=== PATIENT | female | born 1975 | race Hispanic/Latino ===

== ENCOUNTER 2016-09-05 20:51 | Emergency (ER) | payer BC ==
[2016-09-05 21:03] VITALS: BP 132/84; PULSE 86; RESP 18; TEMP 98.9; O2SAT 98
[2016-09-05] MEDS ORDERED: Albuterol-Ipratrop 3 mg / 0.5 (3 ml) UD IH STA (21:48)
--- NOTE | 2016-09-05 21:51 | ED PDOC ---
HPI: CCC, URI, Sore Throat Time Seen by Provider: 09/05/16 21:37 Chief Complaint (Nursing): Cough, Cold, Congestion Chief Complaint (Provider): cough History Per: Patient History/Exam Limitations: no limitations Onset/Duration Of Symptoms: Days (4) Current Symptoms Are (Timing): Still Present Associated Symptoms: Cough Additional History Per: Patient Additional Complaint(s): 40 y/o female presents with persistent cough x 4 days. Patient notes nasal congestion, fevers at onset; since resolved. Patient states cough persists despite cough suppressants. Patient notes coughing spell caused her to throw up phlegm which cleared her chest, now just dry cough. Denies fever, nasal congestion/discharge, chest pain, shortness of breath, palpitations, recent travel, sick contacts. Past Medical History Reviewed: Historical Data, Nursing Documentation, Vital Signs Vital Signs: Last Vital Signs Temp 98.9 F 09/05/16 20:54 Pulse 86 09/05/16 20:54 Resp 18 09/05/16 20:54 BP 132/84 09/05/16 20:54 Pulse Ox 98 09/05/16 21:51 - Medical History PMH: Asthma, Bronchitis - Family History Family History: States: Unknown Family Hx - Immunization History Hx Tetanus Toxoid Vaccination: No Hx Influenza Vaccination: No Hx Pneumococcal Vaccination: No - Home Medications Home Medications: Ambulatory Orders Medication Instructions Recorded Aspirin [Aspirin Chewable] 81 mg PO DAILY 11/15/14 Multivitamin and Minerals 1 tab PO DAILY 11/15/14 [Therapeutic Multivitamin W/Minerals] Albuterol Sulfate [Ventolin Hfa] 1 puff IH Q6 #1 inh 03/07/15 Azithromycin [Zithromax] 6 ml PO DAILY #24 ml 03/07/15 Brompheniramine/Pseudoephed/Dm 10 ml PO Q4 #300 syr 03/07/15 [Bromfed Dm Cough 118 ml] Ondansetron ODT [Zofran ODT] 4 mg PO TID #21 odt 11/19/15 Azithromycin 500 mg PO ONCE #37.5 ml 09/05/16 - Allergies Allergies/Adverse Reactions: Allergies Allergy/AdvReac Type Severity Reaction Status Date / Time acetaminophen [From Percocet] Allergy ITCHING Verified 11/19/15 20:38 iron Allergy ITCHING Verified 11/19/15 20:38 oxycodone HCl [From Percocet] Allergy ITCHING Verified 11/19/15 20:38 iron Allergy RASH Uncoded 03/07/15 21:32 Review of Systems ROS Statement: Except As Marked, All Systems Reviewed And Found Negative Respiratory: Positive for: Cough Physical Exam - Reviewed Nursing Documentation Reviewed: Yes Vital Signs Reviewed: Yes - Physical Exam Appears: Positive for: Well, Non-toxic, Uncomfortable (actively coughing) Skin: Positive for: Normal Color Eye Exam: Positive for: Normal appearance ENT: Positive for: Normal ENT Inspection Cardiovascular/Chest: Positive for: Regular Rate, Rhythm Respiratory: Positive for: Normal Breath Sounds Gastrointestinal/Abdominal: Positive for: Normal Exam Back: Positive for: Normal Inspection Extremity: Positive for: Normal ROM Neurologic/Psych: Positive for: Alert, Oriented - ECG O2 Sat by Pulse Oximetry: 98 - Radiology X-Ray: Viewed By Md X-Ray Interpretation: No Acute Disease - Progress ED Course And Treament: chest xray, duonebs Patient educated on findings, discharged with rx Zpak. Patient states she does not wish to take steroids, and does not think she can tolerate codeine due to her percocet allergy. Advised to use Albuterol HFA. Follow up PMD 2-3 days. Return to ED for worsening/concerning symptoms. Disposition - Clinical Impression Clinical Impression: Bronchitis - Patient ED Disposition Is Patient to be Admitted: No Counseled Patient/Family Regarding: Studies Performed, Diagnosis, Need For Followup, Rx Given - Disposition Disposition: Routine/Home Disposition Time: 23:44 Condition: STABLE Additional Instructions: Follow up with primary doctor in 2-3 days. Take medication as directed. Use inhaler as instructed. Continue cough medication as directed. Return to ED for worsening/concerning symptoms. Prescriptions: Azithromycin 500 mg PO ONCE #37.5 ml Instructions: Acute Bronchitis (ED)
[2016-09-05] MEDS ORDERED: Albuterol-Ipratrop 3 mg / 0.5 (3 ml) UD ONE (21:56)
[2016-09-05] MEDS: Albuterol-Ipratrop 3 mg / 0.5 (3 ml) UD IH STA ×3 (22:05→22:11)
[2016-09-05] MEDS ORDERED: Promethazine 6.25 MG/5 ML CUP ONE (23:46)
[2016-09-05] MEDS ORDERED: Promethazine 6.25 MG/5 ML CUP PO STA (23:56)
--- NOTE | 2016-09-06 13:01 | RAD ---
HISTORY: cough COMPARISON: 11/15/2014 FINDINGS: LUNGS: The lungs are well inflated and clear. PLEURA: No significant pleural effusion identified, no pneumothorax apparent. CARDIOVASCULAR: Normal. OSSEOUS STRUCTURES: No significant abnormalities. VISUALIZED UPPER ABDOMEN: Normal. OTHER FINDINGS: None. IMPRESSION: No active pulmonary disease.
== END 2016-09-06 00:05 | disposition home or self-care (01) ==
LOC: H.ER 20:51
DX: J20.9 Acute bronchitis, unspecified (principal); J45.909 Unspecified asthma, uncomplicated

== ENCOUNTER 2016-09-06 18:22 | Emergency (ER) | payer BC ==
[2016-09-06 18:49] VITALS: BP 141/78; PULSE 78; RESP 22; TEMP 98.4; O2SAT 100
[2016-09-06] MEDS ORDERED: Albuterol-Ipratrop 3 mg / 0.5 (3 ml) UD IH STA (20:27)
--- NOTE | 2016-09-06 20:34 | ED PDOC ---
HPI: CCC, URI, Sore Throat Time Seen by Provider: 09/06/16 20:26 Chief Complaint (Nursing): Cough, Cold, Congestion Chief Complaint (Provider): cough History Per: Patient History/Exam Limitations: no limitations Onset/Duration Of Symptoms: Days Current Symptoms Are (Timing): Still Present Additional History Per: Patient Additional Complaint(s): 40 y/o female here for eval of persistent dry cough. Patient seen yesterday for same, diagnosed with Bronchitis and prescribed zithromax. PAtient declined steroids, promethazine with codeine at that time; but notes little improvement of cough with inhaler and antibiotics and OTC cough medicine. Denies fever, nasal congestion/discharge, chest pain, shortness of breath, palpitations, recent travel, sick contacts. Past Medical History Reviewed: Historical Data, Nursing Documentation, Vital Signs Vital Signs: Last Vital Signs Temp 98.4 F 09/06/16 18:49 Pulse 78 09/06/16 18:49 Resp 22 09/06/16 18:49 BP 141/78 09/06/16 18:49 Pulse Ox 100 09/06/16 20:34 - Medical History PMH: Asthma, Bronchitis Other PMH: myeloma - Surgical History Surgical History: No Surg Hx - Family History Family History: States: Unknown Family Hx - Immunization History Hx Tetanus Toxoid Vaccination: No Hx Influenza Vaccination: No Hx Pneumococcal Vaccination: No - Home Medications Home Medications: Ambulatory Orders Medication Instructions Recorded Aspirin [Aspirin Chewable] 81 mg PO DAILY 11/15/14 Multivitamin and Minerals 1 tab PO DAILY 11/15/14 [Therapeutic Multivitamin W/Minerals] Albuterol Sulfate [Ventolin Hfa] 1 puff IH Q6 #1 inh 03/07/15 Azithromycin [Zithromax] 6 ml PO DAILY #24 ml 03/07/15 Brompheniramine/Pseudoephed/Dm 10 ml PO Q4 #300 syr 03/07/15 [Bromfed Dm Cough 118 ml] Ondansetron ODT [Zofran ODT] 4 mg PO TID #21 odt 11/19/15 Azithromycin 500 mg PO ONCE #37.5 ml 09/05/16 Fluticasone Propionate [Flovent 110 mcg IH BID #1 inhaler 09/06/16 Hfa] - Allergies Allergies/Adverse Reactions: Allergies Allergy/AdvReac Type Severity Reaction Status Date / Time acetaminophen [From Percocet] Allergy ITCHING Verified 09/06/16 18:48 iron Allergy ITCHING Verified 09/06/16 18:48 oxycodone HCl [From Percocet] Allergy ITCHING Verified 09/06/16 18:48 iron Allergy RASH Uncoded 03/07/15 21:32 Review of Systems ROS Statement: Except As Marked, All Systems Reviewed And Found Negative Respiratory: Positive for: Cough Physical Exam - Reviewed Nursing Documentation Reviewed: Yes Vital Signs Reviewed: Yes - Physical Exam Appears: Positive for: Well, Non-toxic, No Acute Distress Head Exam: Positive for: ATRAUMATIC, NORMAL INSPECTION, NORMOCEPHALIC Skin: Positive for: Normal Color Eye Exam: Positive for: Normal appearance ENT: Positive for: Normal ENT Inspection Cardiovascular/Chest: Positive for: Regular Rate, Rhythm Respiratory: Positive for: Normal Breath Sounds Gastrointestinal/Abdominal: Positive for: Normal Exam Back: Positive for: Normal Inspection Extremity: Positive for: Normal ROM Neurologic/Psych: Positive for: Alert, Oriented - Laboratory Results Result Diagrams: 09/06/16 20:59 09/06/16 20:59 - ECG O2 Sat by Pulse Oximetry: 100 - Progress ED Course And Treament: labs, IV solumedrol dose, duoneb On re-eval, cough improved. Patient discharged with rx Flovent. Advised follow up PMD 1-2 days. Continue current medications. Return to ED for worsening/concerning symptoms. Disposition - Clinical Impression Clinical Impression: Bronchitis - Patient ED Disposition Is Patient to be Admitted: No Counseled Patient/Family Regarding: Studies Performed, Diagnosis, Need For Followup, Rx Given - Disposition Disposition: Routine/Home Disposition Time: 23:33 Condition: IMPROVED Additional Instructions: Follow up with primary doctor in 1-2 days. Use medications as instructed. Return to ED for worsening/concerning symptoms. Prescriptions: Fluticasone Propionate [Flovent Hfa] 110 mcg IH BID #1 inhaler
[2016-09-06] MEDS ORDERED: Sodium Chloride 0.9% 1,000 ML IV STA (20:40)
[2016-09-06 21:31] LABS: BASO % 0.2 % (0.0-2.0); EOS # 0.1 K/uL (0.0-0.7); EOS % 1.1 % (0.0-4.0); HEMATOCRIT 33.5 % (34.0-47.0); LYMPH # 1.4 K/uL (1.0-4.3); LYMPH % 19.9 % (20.0-40.0); MEAN CELL VOLUME 80.4 fl (81.0-99.0); MEAN CORPUSCULAR HEMOGLOBIN 27.1 pg (27.0-31.0); MEAN CORPUSCULAR HGB CONC 33.7 g/dL (33.0-37.0); MEAN PLATELET VOLUME 7.3 fl (7.2-11.7); MONO # 0.5 K/uL (0.0-0.8); MONO % 7.2 % (0.0-10.0); NEUT # 4.9 K/uL (1.8-7.0); NEUT % 71.6 % (50.0-75.0); NRBC % 0.3 % (0.0-0.0); RED CELL DISTRIBUTION WIDTH 18.7 % (11.5-14.5); WHITE BLOOD COUNT 6.9 K/uL (4.8-10.8)
[2016-09-06 21:44] LABS: ALB/GLOB RATIO 1.2 (1.0-2.1); ALKALINE PHOSPHATASE 83 U/L (38-126); ALT/SGPT 53 U/L (9-52); AST/SGOT 49 U/L (14-36); BILIRUBIN,TOTAL 0.6 mg/dl (0.2-1.3); BLOOD UREA NITROGEN 17 mg/dl (7-17); CALCIUM 9.3 mg/dL (8.4-10.2); CARBON DIOXIDE 21 mmol/L (22-30); CHLORIDE 106 mmol/L (98-107); GFR AFRICAN-AMERICAN > 60; GLUCOSE,RANDOM 103 mg/dL (65-105); SODIUM 143 mmol/l (132-148); TOTAL PROTEIN 7.9 G/DL (6.3-8.2)
== END 2016-09-06 23:48 | disposition home or self-care (01) ==
LOC: H.ER 18:22
DX: J40 Bronchitis, not specified as acute or chronic (principal)
CPT/HCPCS: 80053; 81025; 85025; 87804; 94640; 96374; 99282; J2930; J7040

== ENCOUNTER 2017-06-20 13:17 | Observation (INO) | payer BC ==
[2017-06-20 14:11] LABS: BASO # 0.1 K/uL (0.0-0.2); EOS # 0.1 K/uL (0.0-0.7); EOS % 0.7 % (0.0-4.0); HEMOGLOBIN 13.2 g/dL (12.0-16.0); LYMPH # 1.5 K/uL (1.0-4.3); LYMPH % 19.2 % (20.0-40.0); MEAN CELL VOLUME 79.3 fl (81.0-99.0); MEAN CORPUSCULAR HEMOGLOBIN 26.9 pg (27.0-31.0); MEAN CORPUSCULAR HGB CONC 33.9 g/dL (33.0-37.0); MEAN PLATELET VOLUME 7.3 fl (7.2-11.7); MONO # 0.6 K/uL (0.0-0.8); MONO % 7.4 % (0.0-10.0); NEUT # 5.5 K/uL (1.8-7.0); NEUT % 71.7 % (50.0-75.0); NRBC % 0.2 % (0.0-0.0); RBC 4.9 Mil/uL (3.80-5.20); RED CELL DISTRIBUTION WIDTH 19.3 % (11.5-14.5); WHITE BLOOD COUNT 7.7 K/uL (4.8-10.8)
[2017-06-20 14:31] LABS: ALB/GLOB RATIO 1.4 (1.0-2.1); ALBUMIN 4.8 g/dL (3.5-5.0); ALT/SGPT 49 U/L (9-52); AST/SGOT 39 U/L (14-36); BLOOD UREA NITROGEN 20 mg/dl (7-17); GFR AFRICAN-AMERICAN > 60; GFR NON-AFRICAN AMERICAN > 60
[2017-06-20 14:42] LABS: B-TYPE NATRIURETIC PEPTIDE 42.1 pg/ml (0-450)
[2017-06-20 15:16] LABS: BARBITURATES, UR NEGATIVE (NEGATIVE); BENZODIAZEPINES, UR NEGATIVE (NEGATIVE); OPIATES, UR NEGATIVE (NEGATIVE); PHENCYCLIDINE, UR NEGATIVE (NEGATIVE)
[2017-06-20 15:30] LABS: PROTHROMBIN TIME 10.5 Seconds (9.8-13.1)
[2017-06-20 15:31] LABS: PARTIAL THROMBOPLASTIN TIME 29.8 Seconds (25.6-37.1)
--- NOTE | 2017-06-20 15:31 | ED PDOC ---
HPI: SOB/CHF/COPD Time Seen by Provider: 06/20/17 13:30 Chief Complaint (Nursing): Shortness Of Breath Chief Complaint (Provider): Shortness Of breath and chest pain History Per: Patient History/Exam Limitations: no limitations Onset/Duration Of Symptoms: Days (x3) Current Symptoms Are (Timing): Still Present Additional Complaint(s): 41 year old female with a past medical history of myelofibrosis, splenomegaly, back pain, and asthma, who presents to the ED complaining of shortness of breath and mild chest pain x3 days. States she was seen yesterday at [facility] and left AMA due to anxiety. Patient was scheduled for CT Angio of the chest to rule out a pulmonary embolism. Patient did not complete treatment. Patient was also under workup for pre-op evaluation for lumbar fusion scheduled in several weeks. Denies fever, cough, hemoptysis, and lower extremity edema or pain. PMD: Dr. Babcock [phone] Past Medical History Reviewed: Historical Data, Nursing Documentation, Vital Signs Vital Signs: Last Vital Signs Temp 99.9 F H 06/20/17 15:45 Pulse 78 06/20/17 18:00 Resp 14 06/20/17 18:00 BP 132/75 06/20/17 18:00 Pulse Ox 100 06/20/17 18:00 - Medical History PMH: Asthma, Back Problems, Bronchitis Other PMH: Splenomegaly, Myelofibrosis - Surgical History Surgical History: No Surg Hx - Family History Family History: States: Unknown Family Hx - Social History Current smoker - smoking cessation education provided: No Alcohol: None - Immunization History Hx Tetanus Toxoid Vaccination: No Hx Influenza Vaccination: No Hx Pneumococcal Vaccination: No - Home Medications Home Medications: Ambulatory Orders Medication Instructions Recorded Folic Acid/Multivit-Min/Lutein 1 tab PO DAILY 06/20/17 [Multi-Vitamin Gummies] - Allergies Allergies/Adverse Reactions: Allergies Allergy/AdvReac Type Severity Reaction Status Date / Time acetaminophen [From Percocet] Allergy ITCHING Verified 06/20/17 13:21 iron Allergy ITCHING Verified 06/20/17 13:21 oxycodone HCl [From Percocet] Allergy ITCHING Verified 06/20/17 13:21 iron Allergy RASH Uncoded 06/20/17 13:21 Review of Systems ROS Statement: Except As Marked, All Systems Reviewed And Found Negative Constitutional: Negative for: Fever Cardiovascular: Positive for: Chest Pain (mild) Respiratory: Positive for: Shortness of Breath. Negative for: Cough, Hemoptysis Musculoskeletal: Negative for: Leg Pain (and edema) Physical Exam - Reviewed Nursing Documentation Reviewed: Yes Vital Signs Reviewed: Yes - Physical Exam Appears: Positive for: Non-toxic, No Acute Distress (mildly anxious) Head Exam: Positive for: ATRAUMATIC, NORMAL INSPECTION, NORMOCEPHALIC Skin: Positive for: Normal Color, Warm, Dry. Negative for: Rash Eye Exam: Positive for: Normal appearance, EOMI, PERRL, Other ([place] conjuctiva) ENT: Positive for: Normal ENT Inspection Neck: Positive for: Normal, Painless ROM, Supple Cardiovascular/Chest: Positive for: Tachycardia (resting). Negative for: Murmur Respiratory: Positive for: Normal Breath Sounds. Negative for: Respiratory Distress Gastrointestinal/Abdominal: Positive for: Normal Exam, Bowel Sounds, Soft. Negative for: Tenderness Back: Positive for: Normal Inspection. Negative for: L CVA Tenderness, R CVA Tenderness, Vertebral Tenderness Extremity: Positive for: Normal ROM. Negative for: Pedal Edema, Deformity, Swelling Neurologic/Psych: Positive for: Alert, Oriented (x3). Negative for: Motor/ Sensory Deficits - Laboratory Results Result Diagrams: 06/20/17 14:00 06/20/17 14:00 - ECG O2 Sat by Pulse Oximetry: 100 (RA) Pulse Ox Interpretation: Normal Medical Decision Making Medical Decision Making: Time: 13:31 Plan: --Results from [facility] yesterday including blood work, EKG and x-ray were copied and scanned into chart. --CT Angio Chest PE Protocol --EKG --BNP --CMP --Urine drug screen --ED urine --ED urine dipstick --CBC w/ differential --PTT --PT --PICC --Ativan 1 mg IVP for anxiolysis --Influenza A B --Reevaluation --EKG shows sinus at 86, nonspecific changes and normal axis --Unable to obtain peripheral IV access despite multiple sticks. Therefore will obtain PICC line for CT chest with contrast -- lungs are clear, she states this dyspnea is different than her prior asthma which has been well controlled CTA: Accession No. : [id number] Patient Name / ID : GERARD [id number] / [id number] Exam Date : 06/20/2017 16:10:11 ( Approved ) Study Comment : Sex / Age : F / 41Y Creator : Benny Houston MD Dictator : Benny Houston MD Plumber Cub : [employer] T[employer] : Benny Houston MD Approver2 : Report Date : 06/20/2017 17:55:32 My Comment : PROCEDURE: CT Chest with contrast (Pulmonary Angiogram) HISTORY: SOB COMPARISON: None available. TECHNIQUE: Axial computed tomography images were obtained of the chest in the pulmonary arterial phase of enhancement. Coronal and sagittal reformatted images were created and reviewed. Intravenous contrast dose: 90 mL Visipaque 320 Radiation dose: Total exam DLP = 406.16 mGy-cm. This CT exam was performed using one or more of the following dose reduction techniques: Automated exposure control, adjustment of the mA and/or kV according to patient size, and/or use of iterative reconstruction technique. FINDINGS: PULMONARY ARTERIES: Examination limited due to timing of examination relative to contrast bolus and due to body habitus. No large central filling defect identified. However, evaluation of segmental and subsegmental vessels is considered limited on the basis of this examination. AORTA: No acute findings. No thoracic aortic aneurysm. LUNGS: Unremarkable. No nodule, mass or pulmonary consolidation. PLEURAL SPACES: Unremarkable. No effusion or pneuomothorax. HEART: Unremarkable. No cardiomegaly. No significant pericardial effusion. LYMPH NODES: No lymphadenopathy. BONES, CHEST WALL: Unremarkable. No fracture or destructive lesion OTHER FINDINGS: Splenomegaly IMPRESSION: Limited examination for evaluation of pulmonary embolism. No evidence of large central pulmonary embolism. No infiltrate/ effusion. Splenomegaly noted. Pt remains dyspneic, HR mildly improved but when ambulates states feels weak/ presyncopal. BP stable. States does not feel anxious, ativan now 4+ hours ago. Place Obs to Dr Vicente, will obtain echo in am and pulm eval. Scribe Attestation: Documented by Scott Brown acting as a scribe for Gorge Hurley III, DO. Scribe Attestation: All medical record entries made by the Scribe were at my direction and personally dictated by me. I have reviewed the chart and agree that the record accurately reflects my personal performance of the history, physical exam, medical decision making, and the department course for this patient. I have also personally directed, reviewed, and agree with the discharge instructions and disposition. Disposition - Clinical Impression Clinical Impression: Dyspnea - Patient ED Disposition Is Patient to be Admitted: Yes Counseled Patient/Family Regarding: Studies Performed, Diagnosis, Need For Followup - Disposition Disposition Time: 17:01 Condition: FAIR Forms: [employer] (Maltese) - Pt Status Changed To: Hospital Disposition Of: Observation - POA Present On Arrival: None
[2017-06-20] MEDS ORDERED: Lidocaine 1% Inj (20ml) ONE (15:48)
--- NOTE | 2017-06-20 16:05 | CARD ---
APPROVED REPORT EKG Measurement Heart [id number] <Conclusion> Normal sinus rhythm Low voltage QRS Borderline ECG
[2017-06-20] MEDS ORDERED: Absorbable Gelatin Sponge Size 12-7 ONE (16:08)
[2017-06-20] MEDS ORDERED: Sodium Chloride 0.9% 50 ML IV ONE (16:11)
[2017-06-20] MEDS ORDERED: Iodixanol 320 MG/ML 100 ML BOTTLE IV ONE (16:11)
--- NOTE | 2017-06-20 16:16 | PCM.SURG1 ---
Surgeon's Initial Post Op Note - Surgeon's Notes Surgeon: Austin Bhakta MD Pesticide Applicator: None Type of Anesthesia: Local Pre-Operative Diagnosis: poor IV access Operative Findings: patent right basilic vein. catheter length: 38 cm. catheter tip: cavoatrial junction Post-Operative Diagnosis: same Operation Performed: RUE PICC insertion Specimen/Specimens Removed: n/a Estimated Blood Loss: EBL {In ML}: 5 Date of Surgery/Procedure: 06/20/17 Time of Surgery/Procedure: 16:16
--- NOTE | 2017-06-20 16:23 | VASCULAR ---
PROCEDURE: PERIPHERALLY INSERTED CENTRAL VENOUS CATHETER INSERTION CLINICAL HISTORY: 41-year-old female with poor intravenous access is referred to Interventional Radiology for PICC insertion. COMPARISON: None. PROCEDURE: 1. Focused ultrasound of the right upper extremity vasculature. 2. Ultrasound-guided access. 3. Insertion of peripherally inserted central venous catheter. 4. Fluoroscopic localization of catheter tip. PRE-PROCEDURE FINDINGS: 1. Patent right basilic vein. POST-PROCEDURE FINDINGS: 1. Placement of 4 Jamaican single-lumen PICC. 2. Catheter length: 38 cm. 3. Catheter tip at cavoatrial junction. INTERVENTIONAL RADIOLOGIST: Austin Bhakta M.D. (the attending was present for the entire procedure) ANESTHESIA: None. MEDICATION: Lidocaine 1% for local subcutaneous analgesia. COMPLICATIONS: None. RADIATION DOSE: Fluoroscopy Time: 34.7 seconds Cumulative Dose: 3.94 mGy PROCEDURE DESCRIPTION AND FINDINGS: The risks, benefits, alternatives and possible complications of the procedure were fully discussed; all questions were answered and informed consent was obtained. The patient was brought into the interventional suite and a pre-procedure 'time-out' was performed. The patient was placed on the fluoroscopy table in the supine position. The right upper extremity was prepped and draped in the usual sterile fashion. Maximum sterile barrier precautions were maintained throughout the entire procedure. Preliminary ultrasound images of the right upper extremity vasculature demonstrate patency of the right basilic vein. Following subcutaneous infiltration of 1% lidocaine for local analgesia, under ultrasound guidance, a 21-gauge needle was advanced into the right basilic vein with real-time visualization of needle entry. The ultrasound images were permanently recorded and submitted to the PACS. A 0.018 guidewire was advanced centrally to the cavoatrial junction. A 4.5 Jamaican peel-away sheath was advanced over the guidewire. After obtaining length measurement, a 4 Jamaican single-lumen PICC was placed with the tip of the catheter at the cavoatrial junction. The total length of the catheter is 38 cm. The hub of the PICC was secured to the skin using a sterile adhesive bandage. The patient tolerated the procedure well without immediate post-procedure complications and was transferred back to the emergency department in stable condition. IMPRESSION: SUCCESSFUL INSERTION OF RIGHT UPPER EXTREMITY PICC. PICC OK TO USE.
--- NOTE | 2017-06-20 17:57 | CT ---
PROCEDURE: CT Chest with contrast (Pulmonary Angiogram) HISTORY: SOB COMPARISON: None available. TECHNIQUE: Axial computed tomography images were obtained of the chest in the pulmonary arterial phase of enhancement. Coronal and sagittal reformatted images were created and reviewed. Intravenous contrast dose: 90 mL Visipaque 320 Radiation dose: Total exam DLP = 406.16 mGy-cm. This CT exam was performed using one or more of the following dose reduction techniques: Automated exposure control, adjustment of the mA and/or kV according to patient size, and/or use of iterative reconstruction technique. FINDINGS: PULMONARY ARTERIES: Examination limited due to timing of examination relative to contrast bolus and due to body habitus. No large central filling defect identified. However, evaluation of segmental and subsegmental vessels is considered limited on the basis of this examination. AORTA: No acute findings. No thoracic aortic aneurysm. LUNGS: Unremarkable. No nodule, mass or pulmonary consolidation. PLEURAL SPACES: Unremarkable. No effusion or pneuomothorax. HEART: Unremarkable. No cardiomegaly. No significant pericardial effusion. LYMPH NODES: No lymphadenopathy. BONES, CHEST WALL: Unremarkable. No fracture or destructive lesion OTHER FINDINGS: Splenomegaly IMPRESSION: Limited examination for evaluation of pulmonary embolism. No evidence of large central pulmonary embolism. No infiltrate/ effusion. Splenomegaly noted.
[2017-06-21] MEDS ORDERED: Acetaminophen 650mg/20.3ml solution UD PO PRN (06:35)
[2017-06-21] MEDS: Pantoprazole 40 mg Susp UD PO SCH ×2 (08:28→08:30)
--- NOTE | 2017-06-21 13:53 | CP.PCM.HP ---
History of Present Illness - History of Present Illness History of Present Illness: 41 yo female presented to ED with complaint of SOB and chest pain x 3 days. Patient reports she was at [facility] yesterday and left against medical advice due to anxiety. PMH includes obesity, asthma, chronic lumbar pain due to herniated discs, myelofibrosis, and splenomegaly. Patient reports she has had similar episodes of this chest pain in the past which have resolved on their own. Patients denies palpitations, syncope, fever, cough, lower extremity pain or swelling. 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 (patient has no other primary) PMHx: obesity, asthma, chronic lumbar pain due to herniated discs, myelofibrosis , and splenomegaly SurHx: schwannoma removed from mediastinum in 2003, herniated disc procedure in 2007 FMHx: unknown family history, patient is adopted SocHx: denies smoking, alcohol, and drugs Medications: see medication reconciliation Allergies: percocet (tylenol/oxycodone), iron infusion Present on Admission - Present on Admission Any Indicators Present on Admission: No History of DVT/PE: No History of Uncontrolled Diabetes: No Urinary Catheter: No Decubitus Ulcer Present: No History Surgical Site Infection Following: None Review of Systems - Review of Systems All systems: reviewed and no additional remarkable complaints except (for what is mentioned in the HPI) - Constitutional Constitutional: absent: Headache, Weight Loss - EENT Eyes: absent: Change in Vision Ears: absent: Ear Pain Nose/Mouth/Throat: absent: Nasal Congestion - Cardiovascular Cardiovascular: Chest Pain, Dyspnea. absent: Leg Edema, Palpitations - Respiratory Respiratory: absent: Cough, Hemoptysis - Gastrointestinal Gastrointestinal: absent: Abdominal Pain, Heartburn, Nausea, Vomiting - Genitourinary Genitourinary: absent: Difficulty Urinating, Dysuria - Musculoskeletal Musculoskeletal: Back Pain (chronic lumbar pain due to history of herniated discs) - Neurological Neurological: absent: Confusion, Weakness - Psychiatric Psychiatric: absent: Homicidal Ideation, Suicidal Ideation - Hematologic/Lymphatic Hematologic: absent: Easy Bleeding, Easy Bruising Past Patient History - Infectious Disease Hx of Infectious Diseases: None - Past Medical History & Family History Past Medical History?: Yes - Past Social History Smoking Status: Never Smoked - CARDIAC Hx Cardiac Disorders: No - PULMONARY Hx Respiratory Disorders: Yes Hx Asthma: Yes Hx Bronchitis: Yes - NEUROLOGICAL Hx Neurological Disorder: No - HEENT Hx HEENT Problems: No - RENAL Hx Chronic Kidney Disease: No - ENDOCRINE/METABOLIC Hx Endocrine Disorders: Yes Other/Comment: Enlarged spleen - HEMATOLOGICAL/ONCOLOGICAL Hx Blood Disorders: Yes Hx Anemia: Yes Other/Comment: Myelofibrosis - INTEGUMENTARY Hx Dermatological Problems: No - MUSCULOSKELETAL/RHEUMATOLOGICAL Hx Musculoskeletal Disorders: Yes Hx Back Pain: Yes Hx Falls: No Hx Herniated Disk: Yes - GASTROINTESTINAL Hx Gastrointestinal Disorders: Yes Hx Fatty Liver Disease: Yes Other/Comment: Enlarged liver & spleen, endoscopy x2,colonoscopy x1. Hernia - GENITOURINARY/GYNECOLOGICAL Hx Genitourinary Disorders: No - PSYCHIATRIC Hx Psychophysiologic Disorder: Yes Hx Anxiety: Yes Hx Substance Use: No - SURGICAL HISTORY Hx Surgeries: Yes Other/Comment: herniated disc surgery-2007, Removal of tumor from mediastinum- 2003 - ANESTHESIA Hx Anesthesia: Yes Hx Anesthesia Reactions: No Hx Malignant Hyperthermia: No Meds Allergies/Adverse Reactions: Allergies Allergy/AdvReac Type Severity Reaction Status Date / Time acetaminophen [From Percocet] Allergy ITCHING Verified 06/20/17 13:21 iron Allergy ITCHING Verified 06/20/17 13:21 oxycodone HCl [From Percocet] Allergy ITCHING Verified 06/20/17 13:21 iron Allergy RASH Uncoded 06/20/17 13:21 Physical Exam - Constitutional Appears: No Acute Distress Additional comments: obese - Head Exam Head Exam: ATRAUMATIC, NORMOCEPHALIC - Eye Exam Eye Exam: EOMI - ENT Exam ENT Exam: Mucous Membranes Moist - Neck Exam Neck exam: Positive for: Full Rom - Respiratory Exam Respiratory Exam: NORMAL BREATHING PATTERN - Cardiovascular Exam Cardiovascular Exam: REGULAR RHYTHM, +S1, +S2 - GI/Abdominal Exam GI & Abdominal Exam: Normal Bowel Sounds, Soft (obese). absent: Tenderness - Extremities Exam Extremities exam: Positive for: full ROM. Negative for: calf tenderness, pedal edema - Neurological Exam Neurological exam: Alert, CN II-XII Intact, Oriented x3 - Psychiatric Exam Psychiatric exam: Normal Affect, Normal Mood - Skin Skin Exam: Dry, Warm Results - Vital Signs Recent Vital Signs: Last Vital Signs Temp 98.1 F 06/21/17 12:00 Pulse 84 06/21/17 12:00 Resp 18 06/21/17 12:00 BP 123/83 06/21/17 12:00 Pulse Ox 100 06/21/17 12:00 - Labs Result Diagrams: 06/20/17 14:00 06/20/17 14:00 Labs: Laboratory Results - last 24 hr 06/20/17 06/20/17 06/20/17 14:00 14:00 14:50 WBC 7.7 RBC 4.90 Hgb 13.2 Hct 38.8 MCV 79.3 L MCH 26.9 L MCHC 33.9 RDW 19.3 H Plt Count 517 H D MPV 7.3 Neut % (Auto) 71.7 Lymph % (Auto) 19.2 L Hooker % (Auto) 7.4 Eos % (Auto) 0.7 Baso % (Auto) 1.0 Neut # 5.5 Lymph # 1.5 Hooker # 0.6 Eos # 0.1 Baso # 0.1 PT INR APTT Sodium 145 Potassium 3.7 Chloride 106 Carbon Dioxide 22 Anion Gap 21 H BUN 20 H Creatinine 0.7 Est GFR ( Amer) > 60 Est GFR (Non-Af Amer) > 60 Random Glucose 122 H Calcium 10.0 Total Bilirubin 0.5 AST 39 H ALT 49 Alkaline Phosphatase 80 Troponin I < 0.0120 NT-Pro-B Natriuret Pep 42.1 Total Protein 8.2 Albumin 4.8 Globulin 3.4 Albumin/Globulin Ratio 1.4 Urine Opiates Screen Negative Urine Methadone Screen Negative Ur Barbiturates Screen Negative Ur Phencyclidine Scrn Negative Ur Amphetamines Screen Negative U Benzodiazepines Scrn Negative U Oth Cocaine Metabols Negative U Cannabinoids Screen Negative 06/20/17 15:14 WBC RBC Hgb Hct MCV MCH MCHC RDW Plt Count MPV Neut % (Auto) Lymph % (Auto) Hooker % (Auto) Eos % (Auto) Baso % (Auto) Neut # Lymph # Hooker # Eos # Baso # PT 10.5 INR 1.0 APTT 29.8 Sodium Potassium Chloride Carbon Dioxide Anion Gap BUN Creatinine Est GFR ( Amer) Est GFR (Non-Af Amer) Random Glucose Calcium Total Bilirubin AST ALT Alkaline Phosphatase Troponin I NT-Pro-B Natriuret Pep Total Protein Albumin Globulin Albumin/Globulin Ratio Urine Opiates Screen Urine Methadone Screen Ur Barbiturates Screen Ur Phencyclidine Scrn Ur Amphetamines Screen U Benzodiazepines Scrn U Oth Cocaine Metabols U Cannabinoids Screen Assessment & Plan - Assessment and Plan (Free Text) Assessment: 41 yo female admitted for SOB. -admit to telemetry -f/u serial troponins, echocardiogram -regular diet -PPI - Date & Time Date: 06/21/17 Time: 10:40
--- NOTE | 2017-06-21 14:07 | CARD ---
APPROVED REPORT EXAM: Two-dimensional and M-mode echocardiogram with Doppler and color Doppler. INDICATION Dyspnea 2D DIMENSIONS IVSd1.27 (0.7-1.1cm)LVDd4.28 (3.9-5.9cm) PWd1.49 (0.7-1.1cm)IVSs1.53 (0.8-1.2cm) LVDs2.84 (2.5-4.0cm)FS (%) 33.5 % PWs1.90 (0.8-1.2cm)LVEF (%)55.0 (>50%) M-Mode DIMENSIONS Left Atrium (MM)3.63 (2.5-4.0cm)IVSd1.28 (0.7-1.1cm) Aortic Root3.13 (2.2-3.7cm)LVDd5.16 (4.0-5.6cm) Aortic Cusp Exc.1.96 (1.5-2.0cm)PWd1.10 (0.7-1.1cm) IVSs1.74 cmFS (%) 38 % LVDs3.20 (2.0-3.8cm)PWs2.06 cm Mitral Valve MV E Hldscltf49.1cm/sMV DECEL [id number] A Asjiyjyr31.2cm/s MV [id number]/A ratio1.4MVA (PHT)4.52cm2 TDI E/Lateral E'0.0E/Medial E'0.0 Tricuspid Valve TR Peak [id number]/sTR Peak Gr.23mmHg LEFT VENTRICLE The left ventricle is normal size. There is borderline concentric left ventricular hypertrophy. The left ventricular function is normal. The left ventricular ejection fraction is within the normal range. There is normal LV segmental wall motion. The left ventricular diastolic function is normal. RIGHT VENTRICLE The right ventricle is normal size. There is normal right ventricular wall thickness. The right ventricular systolic function is normal. ATRIA The left atrium size is normal. The right atrium size is normal. AORTIC VALVE The aortic valve is normal in structure. No aortic regurgitation is present. There is no aortic valvular stenosis. MITRAL VALVE The mitral valve is mildly thickened. There is no mitral valve stenosis. Mitral regurgitation is trace. TRICUSPID VALVE The tricuspid valve is normal in structure. There is no tricuspid valve regurgitation noted. PULMONIC VALVE The pulmonary valve is normal in structure. There is no pulmonic valvular regurgitation. GREAT VESSELS The aortic root is normal in size. The IVC was not visualized. PERICARDIAL EFFUSION There is a trace circumferential pericardial effusion. <Conclusion> The left ventricle is normal size. There is borderline concentric left ventricular hypertrophy. The left ventricular function is normal. The left ventricular ejection fraction is within the normal range. There is normal LV segmental wall motion. The left ventricular diastolic function is normal.
[2017-06-21 16:04] VITALS: BP 132/80; PULSE 104; RESP 19; TEMP 98.7; O2SAT 99
--- NOTE | 2017-06-21 16:49 | CP.PCM.DIS ---
Provider - Provider Date of Admission: 06/20/17 18:37 Attending physician: Avel Vicente MD Primary care physician: Dr. Babcock Time Spent in preparation of Discharge (in minutes): 30 Diagnosis - Discharge Diagnosis (1) Dyspnea Status: Resolved Priority: Low (2) Chest pain Status: Resolved Priority: Low Hospital Course - Lab Results Lab Results: Most Recent Lab Values WBC 7.7 K/uL (4.8-10.8) 06/20/17 14:00 RBC 4.90 Mil/uL (3.80-5.20) 06/20/17 14:00 Hgb 13.2 g/dL (12.0-16.0) 06/20/17 14:00 Hct 38.8 % (34.0-47.0) 06/20/17 14:00 MCV 79.3 fl (81.0-99.0) L 06/20/17 14:00 MCH 26.9 pg (27.0-31.0) L 06/20/17 14:00 MCHC 33.9 g/dL (33.0-37.0) 06/20/17 14:00 RDW 19.3 % (11.5-14.5) H 06/20/17 14:00 Plt Count 517 K/uL (130-400) H D 06/20/17 14:00 MPV 7.3 fl (7.2-11.7) 06/20/17 14:00 Neut % (Auto) 71.7 % (50.0-75.0) 06/20/17 14:00 Lymph % (Auto) 19.2 % (20.0-40.0) L 06/20/17 14:00 Slope % (Auto) 7.4 % (0.0-10.0) 06/20/17 14:00 Eos % (Auto) 0.7 % (0.0-4.0) 06/20/17 14:00 Baso % (Auto) 1.0 % (0.0-2.0) 06/20/17 14:00 Neut # 5.5 K/uL (1.8-7.0) 06/20/17 14:00 Lymph # 1.5 K/uL (1.0-4.3) 06/20/17 14:00 Slope # 0.6 K/uL (0.0-0.8) 06/20/17 14:00 Eos # 0.1 K/uL (0.0-0.7) 06/20/17 14:00 Baso # 0.1 K/uL (0.0-0.2) 06/20/17 14:00 PT 10.5 Seconds (9.8-13.1) 06/20/17 15:14 INR 1.0 (0.9-1.2) 06/20/17 15:14 APTT 29.8 Seconds (25.6-37.1) 06/20/17 15:14 Sodium 145 mmol/l (132-148) 06/20/17 14:00 Potassium 3.7 MMOL/L (3.6-5.0) 06/20/17 14:00 Chloride 106 mmol/L (98-107) 06/20/17 14:00 Carbon Dioxide 22 mmol/L (22-30) 06/20/17 14:00 Anion Gap 21 (10-20) H 06/20/17 14:00 BUN 20 mg/dl (7-17) H 06/20/17 14:00 Creatinine 0.7 mg/dl (0.7-1.2) 06/20/17 14:00 Est GFR ( Amer) > 60 06/20/17 14:00 Est GFR (Non-Af Amer) > 60 06/20/17 14:00 Random Glucose 122 mg/dL (65-105) H 06/20/17 14:00 Calcium 10.0 mg/dL (8.4-10.2) 06/20/17 14:00 Total Bilirubin 0.5 mg/dl (0.2-1.3) 06/20/17 14:00 AST 39 U/L (14-36) H 06/20/17 14:00 ALT 49 U/L (9-52) 06/20/17 14:00 Alkaline Phosphatase 80 U/L (38-126) 06/20/17 14:00 Troponin I < 0.0120 ng/mL (0.00-0.120) 06/20/17 14:00 NT-Pro-B Natriuret Pep 42.1 pg/ml (0-450) 06/20/17 14:00 Total Protein 8.2 G/DL (6.3-8.2) 06/20/17 14:00 Albumin 4.8 g/dL (3.5-5.0) 06/20/17 14:00 Globulin 3.4 gm/dL (2.2-3.9) 06/20/17 14:00 Albumin/Globulin Ratio 1.4 (1.0-2.1) 06/20/17 14:00 Urine Opiates Screen Negative (NEGATIVE) 06/20/17 14:50 Urine Methadone Screen Negative (NEGATIVE) 06/20/17 14:50 Ur Barbiturates Screen Negative (NEGATIVE) 06/20/17 14:50 Ur Phencyclidine Scrn Negative (NEGATIVE) 06/20/17 14:50 Ur Amphetamines Screen Negative (NEGATIVE) 06/20/17 14:50 U Benzodiazepines Scrn Negative (NEGATIVE) 06/20/17 14:50 U Oth Cocaine Metabols Negative (NEGATIVE) 06/20/17 14:50 U Cannabinoids Screen Negative (NEGATIVE) 06/20/17 14:50 - Hospital Course Hospital Course: 41 yr old F admitted for SOB and chest pain, r/o ACS. Patient improved and SOB and chest pain resolved. SOB and chest pain were due to anxiety, ACS and PE were ruled out. Chest CT was negative for PE. Troponin was negative, EKG was normal sinus rhythm, Echocardiogram showed normal systolic and diastolic heart function with normal LVEF. Patient was discharged home medically stable with instructions to follow up with her PMD within 1 week. - Date & Time of H&P Date of H&P: 06/21/17 Time of H&P: 13:44 Discharge Exam - Head Exam Head Exam: ATRAUMATIC, NORMOCEPHALIC - Eye Exam Eye Exam: EOMI - ENT Exam ENT Exam: Mucous Membranes Moist - Neck Exam Neck exam: Full Rom - Respiratory Exam Respiratory Exam: Clear to PA & Lateral, NORMAL BREATHING PATTERN - Cardiovascular Exam Cardiovascular Exam: REGULAR RHYTHM, +S1, +S2 - GI/Abdominal Exam GI & Abdominal Exam: Normal Bowel Sounds, Soft (obese). absent: Tenderness - Extremities Exam Extremities exam: full ROM - Neurological Exam Neurological exam: Alert, CN II-XII Intact, Oriented x3 - Psychiatric Exam Psychiatric exam: Normal Affect, Normal Mood - Skin Skin Exam: Dry, Warm Discharge Plan - Follow Up Plan Condition: FAIR Disposition: HOME/ ROUTINE Instructions: Dyspnea (GEN) Additional Instructions: Follow up with your PMD Dr. Babcock within 1 week. Clinical Quality Measures - Date & Time of Discharge Summary Date of Discharge Summary: 06/21/17 Time of Discharge Summary: 16:54
== END 2017-06-21 16:19 | disposition home or self-care (01) ==
LOC: H.ER 13:17 → H.ERHOLD 18:37 → H.TEL 21:50
PROVIDERS: ADMIT Family Medicine; ATTEND Family Medicine
DX: R07.89 Other chest pain (principal); F41.9 Anxiety disorder, unspecified; J45.909 Unspecified asthma, uncomplicated; K76.0 Fatty (change of) liver, not elsewhere classified; Z86.018 Personal history of other benign neoplasm; D64.9 Anemia, unspecified; M54.5 Low back pain; E66.9 Obesity, unspecified; J40 Bronchitis, not specified as acute or chronic; D75.81 Myelofibrosis
CPT/HCPCS: 36569; 71275; 76937; 80053; 81025; 83880; 84484; 85025; 85610; 85730; 93005; 93306; 96374; 99285; A4310; C1751; G0378; G0480; J2060; Q9967

== ENCOUNTER 2017-07-30 11:23 | Emergency (ER) | payer BC ==
[2017-07-30 11:25] VITALS: BMI 35.9
[2017-07-30 11:26] VITALS: BP 143/91; PULSE 96; RESP 17; TEMP 98.1; O2SAT 100
[2017-07-30 12:12] LABS: BASO % 0.6 % (0.0-2.0); EOS # 0.1 K/uL (0.0-0.7); EOS % 1.2 % (0.0-4.0); HEMOGLOBIN 11.2 g/dL (12.0-16.0); LYMPH # 1.5 K/uL (1.0-4.3); LYMPH % 19.2 % (20.0-40.0); MEAN CORPUSCULAR HEMOGLOBIN 27.3 pg (27.0-31.0); MEAN CORPUSCULAR HGB CONC 33.7 g/dL (33.0-37.0); MEAN PLATELET VOLUME 7.3 fl (7.2-11.7); MONO # 0.6 K/uL (0.0-0.8); MONO % 8.3 % (0.0-10.0); NEUT # 5.5 K/uL (1.8-7.0); NEUT % 70.7 % (50.0-75.0); NRBC % 0.3 % (0.0-0.0); RBC 4.1 Mil/uL (3.80-5.20); RED CELL DISTRIBUTION WIDTH 19.4 % (11.5-14.5); WHITE BLOOD COUNT 7.8 K/uL (4.8-10.8)
[2017-07-30 12:17] LABS: ALB/GLOB RATIO 1.3 (1.0-2.1); ALBUMIN 4.4 g/dL (3.5-5.0); ALT/SGPT 100 U/L (9-52); AST/SGOT 44 U/L (14-36); BLOOD UREA NITROGEN 18 mg/dl (7-17); CALCIUM 9.4 mg/dL (8.4-10.2); GFR AFRICAN-AMERICAN > 60; GFR NON-AFRICAN AMERICAN > 60
[2017-07-30 12:21] LABS: SQUAMOUS EPITHIAL 12 /hpf (0-5); URINE BACTERIA RARE (<OCC); URINE BILIRUBIN NEGATIVE (NEGATIVE); URINE BLOOD NEGATIVE (NEGATIVE); URINE CLARITY CLOUDY (Clear); URINE COLOR YELLOW (YELLOW); URINE GLUCOSE (UA) NEG (Normal); URINE LEUKOCYTE ESTERASE LARGE Leu/uL (Negative); URINE NITRATE NEGATIVE (NEGATIVE); URINE PROTEIN NEGATIVE (NEGATIVE); URINE UROBILINOGEN 0.2-1.0 mg/dL (0.2-1.0)
[2017-07-30 12:34] LABS: PROTHROMBIN TIME 11.5 Seconds (9.8-13.1)
--- NOTE | 2017-07-30 13:36 | ED PDOC ---
HPI: Abdomen Time Seen by Provider: 07/30/17 11:37 Chief Complaint (Nursing): Abdominal Pain Chief Complaint (Provider): Palpitations, abdominal throbbing History Per: Patient History/Exam Limitations: no limitations Additional Complaint(s): Pt reports 2 episodes of palpitations that lasted few minutes each time, last episode 2 days ago. Also c/o throbbing around belly button and L lower abdomen intermittently X 3 days. Denies fever, nausea, vomiting, abdominal pain, constipation, diarrhea. Pt had spinal fusion on 07/05/17. Against Medical Advice - AMA Patient Left Against Medical Advice: The patient declines admission to the hospital and wishes to leave the Emergency Department. This action is against my medical advice. This decision was made with informed refusal. The patient was told that admission to the hospital is necessary. Explanation of the reasons why were discussed. The risks of leaving were explained to the patient and include, but are not limited to, worsening of known or currently unknown conditions, permanent disability and from undiagnosed or untreated conditions. The patient has the capacity to make this informed decision and understands my explanation of the current medical problem and risks of leaving. The patient voluntarily accepts these risks and signed an AMA form documenting our conversation. The patient was given the opportunity to ask questions and reconsider. The patient was encouraged to return to the Emergency Department at any time for further care. Past Medical History Reviewed: Nursing Documentation, Vital Signs Vital Signs: Last Vital Signs Temp 98.1 F 07/30/17 11:25 Pulse 96 H 07/30/17 11:25 Resp 17 07/30/17 11:25 BP 143/91 H 07/30/17 11:25 Pulse Ox 100 08/02/17 10:27 - Medical History PMH: Anemia, Anxiety, Asthma, Back Problems, Bronchitis Denies: Chronic Kidney Disease Other PMH: Splenomegaly - Surgical History Other surgeries: Spinal fusion - Family History Family History: States: Unknown Family Hx - Social History Current smoker - smoking cessation education provided: No Alcohol: None - Immunization History Hx Tetanus Toxoid Vaccination: No Hx Influenza Vaccination: No Hx Pneumococcal Vaccination: No - Home Medications Home Medications: Ambulatory Orders Medication Instructions Recorded Folic Acid/Multivit-Min/Lutein 1 tab PO DAILY 06/20/17 [Multi-Vitamin Gummies] - Allergies Allergies/Adverse Reactions: Allergies Allergy/AdvReac Type Severity Reaction Status Date / Time acetaminophen [From Percocet] Allergy ITCHING Verified 06/20/17 13:21 iron Allergy ITCHING Verified 06/20/17 13:21 oxycodone HCl [From Percocet] Allergy ITCHING Verified 06/20/17 13:21 iron Allergy RASH Uncoded 06/20/17 13:21 Review of Systems Constitutional: Negative for: Fever, Chills Cardiovascular: Positive for: Palpitations. Negative for: Chest Pain Respiratory: Negative for: Cough, Shortness of Breath, Sputum, Wheezing Gastrointestinal: Negative for: Nausea, Vomiting, Abdominal Pain, Diarrhea, Hematochezia, Hematemesis Genitourinary Female: Negative for: Dysuria, Hematuria, Vaginal Discharge, Vaginal Bleeding Musculoskeletal: Negative for: Neck Pain, Back Pain Skin: Negative for: Rash, Lesions Neurological: Negative for: Weakness, Numbness, Headache, Dizziness Physical Exam - Reviewed Nursing Documentation Reviewed: Yes Vital Signs Reviewed: Yes - Physical Exam Appears: Positive for: Well, No Acute Distress Skin: Positive for: Normal Color, Warm, Dry Cardiovascular/Chest: Positive for: Regular Rate, Rhythm Respiratory: Positive for: Normal Breath Sounds Gastrointestinal/Abdominal: Positive for: Normal Exam, Bowel Sounds, Soft. Negative for: Tenderness Back: Positive for: Normal Inspection. Negative for: L CVA Tenderness, R CVA Tenderness Extremity: Positive for: Normal ROM Neurologic/Psych: Positive for: Alert, Oriented - Laboratory Results Result Diagrams: 07/30/17 12:00 07/30/17 12:00 - ECG O2 Sat by Pulse Oximetry: 100 Medical Decision Making Medical Decision Makin yo female with palpitations and abdominal throbbing. - labs - EKG - CT chest/abd/pelvis Pt states she always has signs of infection in urine "all my life" and cultures always negative. Labs discussed with patient, including elevated D-dimer and possible causes of elevation. Pt refusing CT due to claustrophobia, states she will go to PMD for outpatient study. Copy of labs given to patient. Disposition - Clinical Impression Clinical Impression: Abdominal pain, Palpitations - Disposition Disposition: Against Medical Advice Disposition Time: 15:25 Condition: UNKNOWN Forms: [facility] (Tanzanian)
[2017-07-30] MEDS ORDERED: Iohexol 300 100 ML IJ ONE (14:08)
--- NOTE | 2017-07-30 19:07 | CARD ---
APPROVED REPORT EKG Measurement Heart [id number] <Conclusion> Normal sinus rhythm Normal ECG
== END 2017-07-30 15:43 | disposition left against medical advice (07) ==
LOC: H.ER 11:23
DX: R10.9 Unspecified abdominal pain (principal); R00.2 Palpitations; F41.9 Anxiety disorder, unspecified; J45.909 Unspecified asthma, uncomplicated; Z88.5 Allergy status to narcotic agent
CPT/HCPCS: 80053; 81003; 81025; 84443; 84484; 85025; 85378; 85610; 85730; 87086; 93005; 99284; Q9967

== ENCOUNTER 2017-08-27 09:37 | Emergency (ER) | payer BC ==
[2017-08-27 09:39] VITALS: BMI 35.6
[2017-08-27 09:41] VITALS: BP 124/84; RESP 17; TEMP 97.6
[2017-08-27 09:45] VITALS: O2SAT 98
[2017-08-27 10:59] VITALS: PULSE 78
[2017-08-27 11:20] LABS: BASO % 0.4 % (0.0-2.0); EOS # 0.1 K/uL (0.0-0.7); LYMPH # 1.3 K/uL (1.0-4.3); MEAN CELL VOLUME 80.6 fl (81.0-99.0); MEAN CORPUSCULAR HEMOGLOBIN 27.2 pg (27.0-31.0); MEAN CORPUSCULAR HGB CONC 33.7 g/dL (33.0-37.0); MEAN PLATELET VOLUME 7.6 fl (7.2-11.7); MONO # 0.5 K/uL (0.0-0.8); MONO % 6.6 % (0.0-10.0); NEUT # 5.4 K/uL (1.8-7.0); NRBC % 0.4 % (0.0-0.0); RBC 4.42 Mil/uL (3.80-5.20); RED CELL DISTRIBUTION WIDTH 19.4 % (11.5-14.5); WHITE BLOOD COUNT 7.2 K/uL (4.8-10.8)
[2017-08-27 11:41] LABS: ALB/GLOB RATIO 1.3 (1.0-2.1); ALBUMIN 4.5 g/dL (3.5-5.0); ALT/SGPT 73 U/L (9-52); AST/SGOT 42 U/L (14-36); BLOOD UREA NITROGEN 13 mg/dl (7-17); CALCIUM 9.8 mg/dL (8.4-10.2); GFR AFRICAN-AMERICAN > 60; GFR NON-AFRICAN AMERICAN > 60
--- NOTE | 2017-08-27 12:07 | RAD ---
HISTORY: Shortness of breath. COMPARISON: 09/05/2016. TECHNIQUE: Chest PA and lateral FINDINGS: LUNGS: No active pulmonary disease. PLEURA: No significant pleural effusion identified. No pneumothorax apparent. CARDIOVASCULAR: Normal. OSSEOUS STRUCTURES: No significant abnormalities. VISUALIZED UPPER ABDOMEN: Normal. OTHER FINDINGS: None. IMPRESSION: No active disease. No significant interval change compared to the prior examination(s).
--- NOTE | 2017-08-27 12:21 | ED PDOC ---
HPI: SOB/CHF/COPD Time Seen by Provider: 08/27/17 10:27 Chief Complaint (Nursing): Shortness Of Breath Chief Complaint (Provider): Shortness Of Breath History Per: Patient History/Exam Limitations: no limitations Additional Complaint(s): 41 y/o female with past medical history of asthma , sciatica , leukemia presents to the ED complaining of shortness of breath. Patient was showering in morning when she felt shortness of breath and chest pain. Patient was here last week with elevated D-dimer but she refused any further treatment and signed AMA. Reports that she was anxious but is not sure. Patient recently had a lower back surgery. Denies fever, cough, leg pain or any further medical complaints. Past Medical History Reviewed: Historical Data, Nursing Documentation, Vital Signs Vital Signs: Last Vital Signs Temp 97.6 F 08/27/17 09:40 Pulse 78 08/27/17 10:59 Resp 17 08/27/17 09:40 BP 124/84 08/27/17 09:40 Pulse Ox 98 08/27/17 12:29 - Medical History PMH: Anemia, Anxiety, Asthma, Back Problems, Bronchitis Denies: Chronic Kidney Disease Other PMH: Sciatica - Surgical History Other surgeries: Lower back spinal fusion - Family History Family History: States: Unknown Family Hx - Immunization History Hx Tetanus Toxoid Vaccination: No Hx Influenza Vaccination: No Hx Pneumococcal Vaccination: No - Home Medications Home Medications: Ambulatory Orders Medication Instructions Recorded Folic Acid/Multivit-Min/Lutein 1 tab PO DAILY 06/20/17 [Multi-Vitamin Gummies] - Allergies Allergies/Adverse Reactions: Allergies Allergy/AdvReac Type Severity Reaction Status Date / Time acetaminophen [From Percocet] Allergy ITCHING Verified 06/20/17 13:21 iron Allergy ITCHING Verified 06/20/17 13:21 oxycodone HCl [From Percocet] Allergy ITCHING Verified 06/20/17 13:21 iron Allergy RASH Uncoded 06/20/17 13:21 Review of Systems ROS Statement: Except As Marked, All Systems Reviewed And Found Negative (As per HPI, otherwie negative) Constitutional: Negative for: Fever Cardiovascular: Positive for: Chest Pain Respiratory: Positive for: Shortness of Breath. Negative for: Cough Musculoskeletal: Negative for: Leg Pain Physical Exam - Reviewed Nursing Documentation Reviewed: Yes Vital Signs Reviewed: Yes - Physical Exam Appears: Positive for: Non-toxic, Uncomfortable (Patient appears anxious) Head Exam: Positive for: ATRAUMATIC, NORMAL INSPECTION, NORMOCEPHALIC Skin: Positive for: Normal Color, Warm, Dry Eye Exam: Positive for: EOMI, Normal appearance, PERRL ENT: Positive for: Normal ENT Inspection Neck: Positive for: Normal, Painless ROM, Supple Cardiovascular/Chest: Positive for: Regular Rate, Rhythm. Negative for: Murmur Respiratory: Positive for: Normal Breath Sounds. Negative for: Accessory Muscle Use, Respiratory Distress Gastrointestinal/Abdominal: Positive for: Normal Exam, Bowel Sounds, Soft. Negative for: Tenderness Back: Positive for: Normal Inspection Extremity: Positive for: Normal ROM. Negative for: Deformity Neurologic/Psych: Positive for: Alert, Oriented (x3) - Laboratory Results Result Diagrams: 08/27/17 11:02 08/27/17 11:02 - ECG O2 Sat by Pulse Oximetry: 98 (RA) Pulse Ox Interpretation: Normal Medical Decision Making Medical Decision Making: Time: 11:02 Initial Impression: Shortness of breath Plan: CMP CBC w/ differential D dimer Chest x-ray Reevaluation --Without intervention, patient was completely fine in 30 minutes Time: 12:05 Chest x-ray FINDINGS: LUNGS: No active pulmonary disease. PLEURA: No significant pleural effusion identified. No pneumothorax apparent. CARDIOVASCULAR: Normal. OSSEOUS STRUCTURES: No significant abnormalities. VISUALIZED UPPER ABDOMEN: Normal. OTHER FINDINGS: None. IMPRESSION: No active disease. No significant interval change compared to the prior examination(s). Time: 13:58 Upon provider reevaluation patient is feeling better, is medically stable, and requires no further treatment in the ED at this time. Patient will be discharged home. Counseling was provided and all questions were answered regarding diagnosis. There is agreement to discharge plan. Return if symptoms persist or worsen. Scribe Attestation: Documented by Clarissa Goldberg acting as a scribe for Bakari Cuellar MD. Scribe Attestation: All medical record entries made by the Scribe were at my direction and personally dictated by me. I have reviewed the chart and agree that the record accurately reflects my personal performance of the history, physical exam, medical decision making, and the department course for this patient. I have also personally directed, reviewed, and agree with the discharge instructions and disposition. Disposition - Clinical Impression Clinical Impression: Gastritis - Disposition Referrals: [facility] [Outside] [facility] [Outside] Condition: IMPROVED Additional Instructions: follow up with your primary doctor in 1-2 days return to the ED with any worsening or concerning symptoms Instructions: Gastritis, Gastritis (DC) Forms: [facility] ([place]raes)
== END 2017-08-27 14:26 | disposition home or self-care (01) ==
LOC: H.ER 09:37
DX: K29.70 Gastritis, unspecified, without bleeding (principal); J45.909 Unspecified asthma, uncomplicated; M54.30 Sciatica, unspecified side; C95.90 Leukemia, unspecified not having achieved remission

== ENCOUNTER 2017-10-14 16:29 | Emergency (ER) | payer BC ==
[2017-10-14 16:29] VITALS: BMI 35.6
[2017-10-14] MEDS ORDERED: Sodium Chloride 0.9% 1,000 ML IV SCH (17:00)
[2017-10-14] MEDS ORDERED: Magnesium Sulfate 2 gm/50 ml 2 GM/50 ML BAG IVPB STA (17:01)
[2017-10-14] MEDS ORDERED: Dexamethasone 10 MG in Sodium Chloride 0.9% 50 ML IVPB STA (17:01)
--- NOTE | 2017-10-14 17:07 | ED PDOC ---
HPI:STROKE - Time Time: 17:00 - Historian Historian: Patient - Chief Complaint Chief Complaint: Numbness, other (Headache) - Notes: Notes:: Pt reports nausea, vomiting and "forgetting words" 2 weeks ago that resolved, now with L sided TOWNSEND X 3 days that started after smelling something in her apartment, intermittent, now with L sided facial numbness X 1 hour and felt bulging on L side of face. NIHSS Stroke Scale - Date/Time Evaluation Performed Date Performed: 10/14/17 Time Performed: 17:00 - How Severe is the Stroke Level of Consciousness: 0=Alert LOC to Questions: 0=Both comments correct LOC to commands: 0=Obeys both correctly Best Gaze: 0=Normal Visual: 0=No visual loss Facial: 0=Normal Motor Arm - Left: 0=No drift Motor Arm - Right: 0=No drift Motor Leg - Left: 0=No drift Motor Leg - Right: 0=No drift Limb Ataxia: 0=Absent Sensory: 0=Normal Best Language: 0=No aphasia Dysarthia: 0=Normal articulation Extinction & Inattention (Neglect): 0=Normal, no object Score: 0 rTPA Inclusion/Exclusion - Refusal of Treatment Patient Refused Treatment: No - Inclusion Criteria for Altepase Patient is 18 years or Older: Yes The Clinical Diagnosis of Ischemic Stroke That is Causing a Potentially Disabling Neurological Deficit: No Time of Onset is Well Established to be Less Than 270 Minute Before Treatment Would Begin: Yes Risk/Benefit Discussed With Patient/Family Member Present: No - Warning to TPA With Conditions Following Conditions Weighed Against Anticipated Benefit: Yes Condition: Stroke Serevity Too Mild Past Medical History Reviewed: Nursing Documentation, Vital Signs Vital Signs: Last Vital Signs Temp 97.9 F 10/14/17 16:42 Pulse 85 10/14/17 16:42 Resp 17 10/14/17 16:42 BP 137/85 10/14/17 16:42 Pulse Ox 100 10/14/17 16:42 - Medical History PMH: Anemia, Anxiety, Asthma, Back Problems, Bronchitis Denies: Chronic Kidney Disease Other PMH: Thoracic Schwannoma, Morgan's syndrome - Family History Family History: States: Unknown Family Hx - Social History Current smoker - smoking cessation education provided: No - Immunization History Hx Tetanus Toxoid Vaccination: No Hx Influenza Vaccination: No Hx Pneumococcal Vaccination: No - Home Medications Home Medications: Ambulatory Orders Medication Instructions Recorded Folic Acid/Multivit-Min/Lutein 1 tab PO DAILY 06/20/17 [Multi-Vitamin Gummies] - Allergies Allergies/Adverse Reactions: Allergies Allergy/AdvReac Type Severity Reaction Status Date / Time acetaminophen [From Percocet] Allergy ITCHING Verified 06/20/17 13:21 iron Allergy ITCHING Verified 06/20/17 13:21 oxycodone HCl [From Percocet] Allergy ITCHING Verified 06/20/17 13:21 iron Allergy RASH Uncoded 06/20/17 13:21 Review of Systems Eyes: Negative for: Vision Change Cardiovascular: Negative for: Chest Pain, Palpitations Respiratory: Negative for: Cough, Shortness of Breath Gastrointestinal: Positive for: Nausea, Vomiting. Negative for: Abdominal Pain , Diarrhea Genitourinary Female: Negative for: Dysuria Musculoskeletal: Negative for: Neck Pain, Back Pain Skin: Negative for: Rash, Lesions Neurological: Positive for: Numbness, Headache. Negative for: Weakness, Incoordination, Change in Speech, Confusion, Seizures, Altered Mental Status, Dizziness Physical Exam - Reviewed Nursing Documentation Reviewed: Yes Vital Signs Reviewed: Yes - Physical Exam Appears: Positive for: Well, No Acute Distress Head Exam: Positive for: ATRAUMATIC, NORMAL INSPECTION Skin: Positive for: Normal Color, Warm, Dry Eye Exam: Positive for: Normal appearance, EOMI, PERRL, Other (R proptosis) Neck: Positive for: Normal Cardiovascular/Chest: Positive for: Regular Rate, Rhythm Respiratory: Positive for: Normal Breath Sounds. Negative for: Rales, Rhonchi, Wheezing Gastrointestinal/Abdominal: Positive for: Normal Exam Extremity: Positive for: Normal ROM Neurologic/Psych: Positive for: Alert, Oriented, Cerebellar Tests (WNL). Negative for: Motor/Sensory Deficits, Aphasia, Facial Droop - Laboratory Results Result Diagrams: 10/14/17 17:29 10/14/17 17:29 - ECG O2 Sat by Pulse Oximetry: 100 Pulse Ox Interpretation: Normal - Physician Consult Information Time Consulting Physican Contacted: 17:00 Physician Contacted: Sanjiv Michel Outcome Of Conversation: Not a tPA candidate, symptoms too mild, recommends ASA 325 mg, MgSO4 2 g IV, Decadron 10 mg IV and Depakote 500 mg IV. - Core Measure Core Measure Indicators: Code Heart - Critical Care Total Time (In Min): 45 Medical Decision Making Medical Decision Makin yo female with TOWNSEND and vomiting. - Code stroke - labs - EKG - CXR - CT head - Neuro consult EXAM: CT Head Without Intravenous Contrast EXAM DATE/TIME: 10/14/2017 4:50 PM CLINICAL HISTORY: 41 years old, female; Signs and symptoms; Other: Stroke; Additional info: Code stroke TECHNIQUE: Axial computed tomography images of the head/brain without intravenous contrast. All CT scans at this facility use one or more dose reduction techniques, viz.: automated exposure control; ma/kV adjustment per patient size (including targeted exams where dose is matched to indication; i.e. head); or iterative reconstruction technique. Coronal and sagittal reformatted images were created and reviewed. COMPARISON: No relevant prior studies available. FINDINGS: Brain: Unremarkable. No hemorrhage. No significant white matter disease. No edema. Ventricles: Unremarkable. No ventriculomegaly. Bones/joints: Unremarkable. No acute fracture. Soft tissues: Unremarkable. Sinuses: There is minimal mucosal thickening in the paranasal sinuses. Mastoid air cells: Unremarkable as visualized. No mastoid effusion. IMPRESSION: No acute findings. 17:30 Pt refusing all medications, states she took Tylenol prior to coming to ED. 18:25 Patient refuses further care, evaluation or treatment in the ER. Patient informed of the reasons for the following and planned treatment, which patient understands, however still refuses. Patient informed of the risk and benefits of treatment. Informed that the risk could include worsening of current conditions, undiagnosed conditions, disability or even . Patient understands the following risk and the benefits of treatment. Patient has the capacity to make decisions and still refuses treatment by RN, PA and ER MD. Patient encouraged to return to the ER at any time and to follow up with PMD. Disposition - Clinical Impression Clinical Impression: Acute headache, Facial paresthesia, CVA (cerebral vascular accident) - Disposition Disposition Time: 18:20 Condition: UNKNOWN Instructions: Acute Headache (ED) Forms: [employer] ([place]rainian)
[2017-10-14] MEDS ORDERED: Magnesium Sulfate 2 gm/50 ml 2 GM/50 ML BAG ONE (17:14)
[2017-10-14] MEDS ORDERED: Aspirin 325 mg EC Tablets PO ONE (17:14)
[2017-10-14] MEDS ORDERED: Valproate 500 MG in Sodium Chloride 0.9% 100 ML IVPB STA (17:18)
[2017-10-14 17:37] VITALS: TEMP 98
[2017-10-14 17:40] LABS: BASO % 0.7 % (0.0-2.0); EOS % 0.7 % (0.0-4.0); HEMOGLOBIN 11.9 g/dL (12.0-16.0); LYMPH # 1.5 K/uL (1.0-4.3); LYMPH % 22.1 % (20.0-40.0); MEAN CELL VOLUME 79.2 fl (81.0-99.0); MEAN CORPUSCULAR HEMOGLOBIN 26.6 pg (27.0-31.0); MEAN CORPUSCULAR HGB CONC 33.6 g/dL (33.0-37.0); MEAN PLATELET VOLUME 7.6 fl (7.2-11.7); MONO # 0.5 K/uL (0.0-0.8); MONO % 7.6 % (0.0-10.0); NEUT # 4.8 K/uL (1.8-7.0); NEUT % 68.9 % (50.0-75.0); NRBC % 0.5 % (0.0-0.0); RBC 4.46 Mil/uL (3.80-5.20); RED CELL DISTRIBUTION WIDTH 19.3 % (11.5-14.5); WHITE BLOOD COUNT 6.9 K/uL (4.8-10.8)
[2017-10-14 17:48] LABS: PROTHROMBIN TIME 11.4 Seconds (9.8-13.1)
[2017-10-14 17:49] LABS: ALB/GLOB RATIO 1.4 (1.0-2.1); ALBUMIN 4.6 g/dL (3.5-5.0); ALT/SGPT 58 U/L (9-52); AST/SGOT 49 U/L (14-36); BLOOD UREA NITROGEN 14 mg/dl (7-17); CALCIUM 9.5 mg/dL (8.4-10.2); GFR AFRICAN-AMERICAN > 60; GFR NON-AFRICAN AMERICAN > 60; HDL CHOLESTEROL 34 MG/DL (30-70)
[2017-10-14 18:01] LABS: LDL CHOLESTEROL 125 mg/dL (0-129)
[2017-10-14 18:27] VITALS: O2SAT 100
[2017-10-14 18:28] VITALS: BP 128/77; PULSE 78; RESP 17
--- NOTE | 2017-10-14 19:23 | CT ---
PROCEDURE: CT HEAD WITHOUT CONTRAST. HISTORY: code stroke COMPARISON: None available. TECHNIQUE: Axial computed tomography images were obtained through the head/brain without intravenous contrast. Radiation dose: Total exam DLP = mGy-cm. This CT exam was performed using one or more of the following dose reduction techniques: Automated exposure control, adjustment of the mA and/or kV according to patient size, and/or use of iterative reconstruction technique. FINDINGS: HEMORRHAGE: No intracranial hemorrhage. BRAIN: No mass effect or edema. No atrophy or chronic microvascular ischemic changes. VENTRICLES: Unremarkable. No hydrocephalus. CALVARIUM: Unremarkable. PARANASAL SINUSES: Unremarkable as visualized. No significant inflammatory changes. MASTOID AIR CELLS: Unremarkable as visualized. No inflammatory changes. OTHER FINDINGS: None. IMPRESSION: Normal CT of the Head.
--- NOTE | 2017-10-14 19:31 | RAD ---
HISTORY: Code Stroke COMPARISON: No prior. FINDINGS: LUNGS: No active pulmonary disease. PLEURA: No significant pleural effusion identified, no pneumothorax apparent. CARDIOVASCULAR: Normal. OSSEOUS STRUCTURES: No significant abnormalities. VISUALIZED UPPER ABDOMEN: Normal. OTHER FINDINGS: None. IMPRESSION: No active disease.
--- NOTE | 2017-10-15 10:11 | CARD ---
APPROVED REPORT EKG Measurement Heart [id number] <Conclusion> Normal sinus rhythm Normal ECG
== END 2017-10-14 18:20 | disposition left against medical advice (07) ==
LOC: H.ER 16:29
DX: R51 Headache (principal); R20.2 Paresthesia of skin; I63.9 Cerebral infarction, unspecified; G83.30 Monoplegia, unspecified affecting unspecified side; J45.909 Unspecified asthma, uncomplicated; Z88.5 Allergy status to narcotic agent
CPT/HCPCS: 70450; 71045; 80053; 80061; 81025; 82948; 83036; 84484; 84703; 85025; 85610; 85730; 86850; 86900; 93005; 96374; 99285; J2405; J7040